=== PATIENT | male | born 1960 | race Caucasian/White ===

== ENCOUNTER 2022-12-23 09:10 | Outpatient (CLI) | payer OTHER, SELFPAY ==
--- OUTSIDE RECORDS SUMMARY | 2022-12-26 08:30 | XMS_ITS | Patient Health Record ---
Author Name Unknown Organization [facility] Address [address] [place] [address] Care Team Providers Care Machine Cementer And Folder Name Role Phone DULCE SHADI Primary Care Provider ALLERGIES Allergen (clinical drug ingredient) Drug/Non Drug Allergy documented on EMR Reaction Allergy Type Onset Date Status iodine topical (uncoded) angioedema Allergy Active Substance with sulfonamide structure and antibacterial mechanism of action (substance) sulfa drugs (uncoded) hives Allergy Active sulfacetamide Sulfacetamide Sodium Unknown Drug Allergy Active REASON FOR REFERRAL No Information MEDICATIONS Medication SIG (Take, Route, Frequency, Duration) Notes Start Date End Date Status Telmisartan 80 MG 1 tablet Orally Once a day for 90 Active Phentermine HCl 37.5 MG 1 Oral Once a day for 30 days Not-Taking Metoprolol Succinate ER 200 MG 1 tablet Orally Once a day for 90 Active predniSONE 10 MG (Prior Auth: Rx Ref#:[id number] ) Oral for 12 Not-Taking amLODIPine Besylate 10 MG 1 tablet Orally Once a day for 90 Active Arimidex 1 MG 0.5 Orally Once Weekly for 90 day(s) Disregard 1st prescription. This medication is to be taken once weekly. NOT once daily. 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 (761906300) [place] [address]- Problem Secondary polycythemia (D75.1) Active confirmed Secondary polycythemia (38858466) [place] [address]- Problem 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 confirmed Testicular hypofunction (822612311) [place] [address]- Problem Primary central sleep apnea (G47.31) Active confirmed Primary central sleep apnea (8354328236774) [place] [address]- Problem Cysts of left upper eyelid (H02.824) Active confirmed Cyst of eye lid (42212654) [place] [address]- Problem Impacted cerumen, right ear (H61.21) Active confirmed Impacted cerumen (26901321) [place] [address]- Problem Essential (primary) hypertension (I10) Active confirmed Essential hypertension (02000938) [place] [address]- Problem Disorder of the skin and subcutaneous tissue, unspecified (L98.9) Active confirmed Disorder of skin AND/OR subcutaneous tissue (21913240) [place] [address]- Problem Localized swelling, mass and lump, lower limb, bilateral (R22.43) Active confirmed [place] [address]- Problem Unspecified skin changes (R23.9) Active confirmed Skin symptom change (593816276) [place] [address]- Problem Localized edema (R60.0) Active confirmed Localized edema (5582391) [place] [address]- Problem 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) 09/22/19 16 Active confirmed Abnormal structure of alpha-fetoprote in (421813693) [place] [address]- Problem Unspecified injury of left ankle, initial encounter (S99.912A) Active confirmed Injury of ankle (459324567) [place] [address]- Problem Activity, walking, marching and hiking (Y93.01) Active confirmed Physical activity (observable entity) (95348697) [place] [address]- Problem Personal history of malignant neoplasm of testis (Z85.47) Active confirmed History o f malignant neoplasm of testis (023520326) [place] [address]- PLAN OF TREATMENT Pending Test Test Name Order Date COMPREHENSIVE METABOLIC PANEL 06/10/2020 CBC (INCLUDES DIFF/PLT) 06/10/2020 ESTRADIOL 06/10/2020 TESTOSTERONE, TOTAL, MALES (ADULT), [place] 0 06/10/2020 Future Test Test Name Order Date TESTOSTERONE, TOTAL, MALES (ADULT), [place] 1 06/09/2019 Insurance Providers Payer Name Payer Address Payer Phone Subscriber Number Group Number Insured Name Patient Relationship to Insured Coverage Start Date Coverage End Date [facility] [address] [address] [place] [address] [id number] Guerrero Hester Self - patient is the insured MEDICAL (GENERAL) HISTORY Medical History History ICD Code High blood pressure Hypogonadism Weight Management Surgical History Surgery Date(Month/Year) Cancer surgery 1997 Cancer surgery , Description: Testicular 1998
== END 2022-12-23 09:11 | disposition home or self-care (01) ==
LOC: NFLDREF 12-26 08:26
PROVIDERS: PCP Family Medicine; Referring Provider Family Medicine; Visit Provider Family Medicine
DX: E29.1 Testicular hypofunction (principal)
CPT/HCPCS: 84270; 84402; 84403

== ENCOUNTER 2023-02-17 08:46 | Outpatient (CLI) | payer OTHER, SELFPAY ==
--- OUTSIDE RECORDS SUMMARY | 2023-02-17 08:50 | XMS_ITS | Patient Health Record ---
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 confirmed Testicular hypofunction (065784198) [place] [address]- Problem Primary central sleep apnea (G47.31) Active confirmed Primary central sleep apnea (8078485104841) [place] [address]- Problem Cysts of left upper eyelid (H02.824) Active confirmed Cyst of eye lid (97148516) [place] [address]- Problem Impacted cerumen, right ear (H61.21) Active confirmed Impacted cerumen (82557631) [place] [address]- Problem Essential (primary) hypertension (I10) Active confirmed Essential hypertension (71734707) [place] [address]- Problem Disorder of the skin and subcutaneous tissue, unspecified (L98.9) Active confirmed Disorder of skin AND/OR subcutaneous tissue (43067436) [place] [address]- Problem Localized swelling, mass and lump, lower limb, bilateral (R22.43) Active confirmed [place] [address]- Problem Unspecified skin changes (R23.9) Active confirmed Skin symptom change (716279229) [place] [address]- Problem Localized edema (R60.0) Active confirmed Localized edema (0932991) [place] [address]- Problem 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) 09/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 16 Active confirmed Abnormal structure of alpha-fetoprote in (795223065) [place] [address]- Problem Unspecified injury of left ankle, initial encounter (S99.912A) Active confirmed Injury of ankle (308037615) [place] [address]- Problem Activity, walking, marching and hiking (Y93.01) Active confirmed Physical activity (observable entity) (24808586) [place] [address]- Problem Personal history of malignant neoplasm of testis (Z85.47) Active confirmed History o f malignant neoplasm of testis (718959194) [place] [address]- PLAN OF TREATMENT Pending Test Test Name Order Date COMPREHENSIVE METABOLIC PANEL 06/10/2020 CBC (INCLUDES DIFF/PLT) 06/10/2020 ESTRADIOL 06/10/2020 TESTOSTERONE, TOTAL, MALES (ADULT), [place] 0 06/10/2020 Future Test Test Name Order Date TESTOSTERONE, TOTAL, MALES (ADULT), IA 1 06/09/2019 Insurance Providers Payer Name Payer Address Payer Phone Subscriber Number Group Number Insured Name Patient Relationship to Insured Coverage Start Date Coverage End Date [facility] [address] [address] [place] [address] [id number] Guerrero Hester Self - patient is the insured MEDICAL (GENERAL) HISTORY Medical History History ICD Code High blood pressure Hypogonadism Weight Management Surgical History Surgery Date(Month/Year) Cancer surgery 1997 Cancer surgery , Description: Testicular 1998
== END 2023-02-17 08:47 | disposition home or self-care (01) ==
PROVIDERS: PCP Family Medicine; Visit Provider Family Medicine
DX: Z00.00 Encounter for general adult medical examination without abnormal findings (principal); I10 Essential (primary) hypertension; E78.5 Hyperlipidemia, unspecified; Z12.5 Encounter for screening for malignant neoplasm of prostate
CPT/HCPCS: 80048; 80061; 84153

== ENCOUNTER 2024-04-05 08:16 | Outpatient (CLI) | payer BC, SELFPAY | END 2024-04-05 08:17 | disposition home or self-care (01) | PROVIDERS: PCP Family Medicine; Visit Provider Family Medicine | DX: E29.1 Testicular hypofunction (principal); I10 Essential (primary) hypertension; Z12.5 Encounter for screening for malignant neoplasm of prostate | CPT/HCPCS: 80053; 84270; 84402; 84403; G0103 ==

== ENCOUNTER 2024-06-19 08:20 | Outpatient (CLI) | payer BC, SELFPAY | END 2024-06-19 08:21 | disposition home or self-care (01) | LOC: LKVREF 08:23 | PROVIDERS: PCP Family Medicine; Visit Provider Emergency Medicine | DX: R25.1 Tremor, unspecified (principal) | CPT/HCPCS: 84443 ==

== ENCOUNTER 2025-04-11 08:32 | Outpatient (CLI) | payer BC, SELFPAY | END 2025-04-11 08:33 | disposition home or self-care (01) | PROVIDERS: PCP Family Medicine; Visit Provider Family Medicine | DX: E29.1 Testicular hypofunction (principal); Z12.5 Encounter for screening for malignant neoplasm of prostate | CPT/HCPCS: 80061; 84270; 84402; 84403; G0103 ==